=== PATIENT | male | born 1985 | race Hispanic/Latino ===

== ENCOUNTER 2019-05-26 04:08 | Emergency (ER) | payer OTHER | END 2019-05-26 05:04 | disposition home or self-care (01) | LOC: EDH 04:08 | DX: K64.0 First degree hemorrhoids (principal); K59.00 Constipation, unspecified; Z87.891 Personal history of nicotine dependence ==

== ENCOUNTER 2019-05-27 09:30 | Emergency (ER) | payer OTHER ==
[2019-05-27 10:22] LABS: BASOPHILS % (AUTO) 0.3 % (0.0-5.0); EOSINOPHILS % (AUTO) 0.2 % (0.0-8.0); HEMATOCRIT 46.1 % (42-54); LYMPHOCYTES % (AUTO) 15.8 % (21.0-51.0); MEAN CORPUSCULAR HEMOGLOBIN 32.1 pg (27.0-33.0); MEAN CORPUSCULAR HGB CONC 33.8 g/dL (32.0-36.0); MEAN CORPUSCULAR VOLUME 95.1 fL (79-99); MONOCYTES % (AUTO) 7.9 % (3.0-13.0); NEUTROPHILS % (AUTO) 75.8 % (40.0-77.0); NUCLEATED RED BLOOD CELLS 0.1 % (0.0-0.19); PLATELET COUNT (AUTO) 219 K/uL (130-400); RED BLOOD CELL COUNT(AUTO) 4.85 MIL/uL (4.50-6.20); RED CELL DISTRIBUTION WIDTH 13.9 % (11.0-15.5); WHITE BLOOD COUNT (AUTO) 5.8 K/uL (4.8-10.8)
[2019-05-27] MEDS ORDERED: HYDROCORTISONE 25 MG SUPPOSITORY PR ONE (10:27)
[2019-05-27 10:29] LABS: POTASSIUM 3.7 mmol/L (3.5-5.1)
[2019-05-27 10:33] LABS: ALBUMIN 4.4 g/dL (3.5-5.0); TOTAL PROTEIN, SERUM 7.7 g/dL (6.0-8.3)
[2019-05-27 10:34] LABS: APPEARANCE,URINE Clear (CLEAR); BILIRUBIN,URINE Negative (NEGATIVE); COLOR,URINE Yellow (YELLOW); GLUCOSE, URINE (UA) Negative (NEGATIVE); KETONES,URINE Negative (NEGATIVE); LEUKOCYTE ESTERASE ,URINE Negative (NEGATIVE); NITRATE,URINE Negative (NEGATIVE); OCCULT BLOOD,URINE Negative (NEGATIVE); PH,URINE 7.5 (5.0-8.0); PROTEIN,URINE Negative (NEGATIVE)
[2019-05-27 10:42] LABS: AMPHET/METH SCREEN,URINE NEGATIVE (NEGATIVE); BARBITURATE SCREEN, URINE NEGATIVE (NEGATIVE); BENZODIAZEPINES SCREEN,URINE NEGATIVE (NEGATIVE); CANNABINOID SCREEN,URINE POSITIVE (NEGATIVE); COCAINE SCREEN,URINE NEGATIVE (NEGATIVE); OPIATE SCREEN,URINE NEGATIVE (NEGATIVE); PHENCYCLIDINE SCREEN,URINE NEGATIVE (NEGATIVE)
== END 2019-05-27 11:00 | disposition home or self-care (01) ==
LOC: EDH 09:30
DX: K64.4 Residual hemorrhoidal skin tags (principal); Z72.0 Tobacco use
CPT/HCPCS: 36415; 80053; 80305; 81003; 82150; 83690; 85025

== ENCOUNTER 2020-04-01 07:13 | Observation (INO) | payer SELFPAY ==
[~2020-04-01] VITALS: Ht 167.6 cm; Wt 61.9 kg
[2020-04-01] MEDS ORDERED: ONDANSETRON HCL 4 MG/2 ML VIAL ONE (07:14)
[2020-04-01] MEDS ORDERED: LORAZEPAM 2 MG/ML 1 ML VIAL ONE (07:44)
[2020-04-01] MEDS ORDERED: MAG HYDROX/AL HYDROX/SIMETH ES 30 ML SUSP UDCUP ONE (07:44)
[2020-04-01] MEDS ORDERED: LIDOCAINE HCL 2% VISCOUS 15 ML UDCUP ONE (07:44)
[2020-04-01] MEDS ORDERED: SODIUM CHLORIDE 0.9% 1000ML 1,000 ML IV ONE ×3 (07:45→16:35)
[2020-04-01 07:49] LABS: BASOPHILS % (AUTO) 0.1 % (0.0-5.0); HEMATOCRIT 43.7 % (42-54); MEAN CORPUSCULAR HEMOGLOBIN 30.5 pg (27.0-33.0); MEAN CORPUSCULAR HGB CONC 35.2 g/dL (32.0-36.0); MEAN CORPUSCULAR VOLUME 86.5 fL (79-99); MONOCYTES % (AUTO) 8.9 % (3.0-13.0); NEUTROPHILS % (AUTO) 87.3 % (40.0-77.0); PLATELET COUNT (AUTO) 274 K/uL (130-400); RED BLOOD CELL COUNT(AUTO) 5.05 MIL/uL (4.50-6.20); RED CELL DISTRIBUTION WIDTH 12.1 % (11.0-15.5); WHITE BLOOD COUNT (AUTO) 24.3 K/uL (4.8-10.8)
[2020-04-01 08:05] LABS: BILIRUBIN,TOTAL 1.1 mg/dL (0.2-1.0); CREATININE 2.2 mg/dL (0.5-1.5); POTASSIUM 3.4 mmol/L (3.5-5.1); TOTAL PROTEIN, SERUM 8.1 g/dL (6.0-8.3)
[2020-04-01] MEDS ORDERED: ONDANSETRON HCL 4 MG/2 ML VIAL IV PRN (09:45)
[2020-04-01] MEDS ORDERED: PHARMACY COMMUNICATION MISC PRN (09:45)
[2020-04-01] MEDS ORDERED: LORAZEPAM 2 MG/ML 1 ML VIAL IVP PRN (09:45)
[2020-04-01] MEDS ORDERED: HYDRALAZINE HCL 20 MG/ML VIAL IV PRN (09:45)
[2020-04-01] MEDS: THIAMINE HCL 100 MG/ML 2ML VIAL IV SCH (09:45)
[2020-04-01] MEDS ORDERED: ACETAMINOPHEN 325 MG TAB PO PRN ×2 (09:45)
[2020-04-01] MEDS: FOLIC ACID 5 MG/ML 10 ML VIAL IV SCH (09:45)
[2020-04-01] MEDS ORDERED: THIAMINE HCL 100 MG/ML 2ML VIAL ONE (10:32)
[2020-04-01 10:33] LABS: AMPHET/METH SCREEN,URINE NEGATIVE (NEGATIVE); BARBITURATE SCREEN, URINE NEGATIVE (NEGATIVE); BENZODIAZEPINES SCREEN,URINE NEGATIVE (NEGATIVE); CANNABINOID SCREEN,URINE POSITIVE (NEGATIVE); COCAINE SCREEN,URINE NEGATIVE (NEGATIVE); OPIATE SCREEN,URINE NEGATIVE (NEGATIVE); PHENCYCLIDINE SCREEN,URINE NEGATIVE (NEGATIVE)
[2020-04-01] MEDS ORDERED: FOLIC ACID 5 MG/ML 10 ML VIAL ONE (10:33)
[2020-04-01] MEDS: SODIUM CHLORIDE 0.9% 1000ML 1,000 ML IV SCH ×2 (14:31→19:31)
[2020-04-01 16:50] VITALS: BP 116/73
[2020-04-01 21:18] VITALS: BP 112/73
[2020-04-01 23:49] VITALS: BP 117/65
[2020-04-02] MEDS: SODIUM CHLORIDE 0.9% 1000ML 1,000 ML IV SCH ×3 (00:30→08:37)
--- NOTE | 2020-04-02 03:52 | NUR ---
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 ORDERS PLACED IN [facility]
[2020-04-02 05:01] LABS: BASOPHILS % (AUTO) 0.2 % (0.0-5.0); EOSINOPHILS % (AUTO) 0.1 % (0.0-8.0); HEMATOCRIT 37.2 % (42-54); LYMPHOCYTES % (AUTO) 10.4 % (21.0-51.0); MEAN CORPUSCULAR HEMOGLOBIN 31.2 pg (27.0-33.0); MEAN CORPUSCULAR HGB CONC 33.6 g/dL (32.0-36.0); MEAN CORPUSCULAR VOLUME 92.8 fL (79-99); MONOCYTES % (AUTO) 8.6 % (3.0-13.0); NEUTROPHILS % (AUTO) 80.4 % (40.0-77.0); PLATELET COUNT (AUTO) 180 K/uL (130-400); RED BLOOD CELL COUNT(AUTO) 4.01 MIL/uL (4.50-6.20); RED CELL DISTRIBUTION WIDTH 11.9 % (11.0-15.5); WHITE BLOOD COUNT (AUTO) 15.5 K/uL (4.8-10.8)
[2020-04-02 05:18] LABS: CREATININE 0.9 mg/dL (0.5-1.5)
[2020-04-02 05:44] VITALS: BP 114/79
[2020-04-02] MEDS ORDERED: LIDOCAINE HCL-MPF 1% 2ML VIAL IV PRN (05:45)
[2020-04-02] MEDS ORDERED: POTASSIUM CHLORIDE 10MEQ/100ML 100 ML IV PRN (05:45)
[2020-04-02] MEDS ORDERED: POTASSIUM CHLORIDE 10% ELIXIR 20 MEQ/15 ML UDCUP PO PRN (05:45)
[2020-04-02] MEDS ORDERED: POTASSIUM CHLORIDE 20 MEQ ERTAB PO PRN (05:45)
--- NOTE | 2020-04-02 05:46 | NUR ---
MARRY LLOYD REPORTED POTASSIUM CRITICAL VALUE OF A 3.0 TO QAMAR POOLE. ORDER TO PLACE PT ON A HALF POTASSIUM PROTOCOL.
[2020-04-02] MEDS ORDERED: POTASSIUM CHLORIDE 10MEQ/100ML 100 ML IV ONE (06:20)
[2020-04-02] MEDS ORDERED: LIDOCAINE HCL-MPF 1% 2ML VIAL ONE (06:21)
[2020-04-02 07:35] VITALS: BP 117/66
[2020-04-02] MEDS ORDERED: POTASSIUM CHLORIDE 20 MEQ ERTAB PO SCH ×2 (08:00→12:00)
[2020-04-02] MEDS: THIAMINE HCL 100 MG/ML 2ML VIAL IV SCH (08:36)
[2020-04-02] MEDS: FOLIC ACID 5 MG/ML 10 ML VIAL IV SCH (08:52)
[2020-04-02 10:42] VITALS: BP 122/77
== END 2020-04-02 14:30 | disposition home or self-care (01) ==
LOC: EDH 07:13 → EDHIP 07:14 → 3AH 16:27
PROVIDERS: ADMIT Internal Medicine; ATTEND Internal Medicine
DX: R11.2 Nausea with vomiting, unspecified (principal); E86.1 Hypovolemia; E87.6 Hypokalemia; F10.20 Alcohol dependence, uncomplicated; N17.9 Acute kidney failure, unspecified; F12.90 Cannabis use, unspecified, uncomplicated; R10.10 Upper abdominal pain, unspecified; Y90.9 Presence of alcohol in blood, level not specified
CPT/HCPCS: 36415 ×2; 74176; 80048; 80053; 80305; 83690; 85025 ×2; 96365; 96366; 96375 ×2; 99284; G0378 ×18; G0480; J2060; J2405 ×2; J3411 ×2; J3490 ×3; J7030 ×3

== ENCOUNTER 2023-06-24 16:08 | Emergency (ER) | payer OTHER ==
[~2023-06-24] VITALS: Ht 167.6 cm; Wt 59.0 kg
[2023-06-24 16:47] LABS: SARS-CoV-2, RNA, NAAT NEGATIVE SARS CoV-2 (NEGATIVE)
[2023-06-24 16:51] LABS: INFLUENZA TYPE A Negative For Type A (NEGATIVE); INFLUENZA TYPE B Negative For Type B (NEGATIVE)
[2023-06-24 16:57] LABS: APPEARANCE,URINE CLEAR (CLEAR); BILIRUBIN,URINE NEGATIVE (NEGATIVE); COLOR,URINE YELLOW (YELLOW); GLUCOSE, URINE (UA) NEGATIVE (NEGATIVE); KETONES,URINE 5 mg/dL (NEGATIVE); LEUKOCYTE ESTERASE ,URINE NEGATIVE Leu/uL (NEGATIVE); NITRATE,URINE NEGATIVE (NEGATIVE); OCCULT BLOOD,URINE NEGATIVE (NEGATIVE); PH,URINE 5.5 (5.0-8.0); PROTEIN,URINE 20 mg/dL (NEGATIVE)
[2023-06-24 17:01] LABS: ADD UA MICROSCOPIC YES
[2023-06-24 17:05] LABS: BACTERIA,URINE RARE /HPF (None Seen); MUCUS,URINE RARE LPF (None Seen); RBC,URINE 0-1 /HPF (0-1); SQUAMOUS EPITHELIAL CELL,UR RARE /HPF (0-2); WBC,URINE 0-1 /HPF (0-1)
[2023-06-24 17:28] VITALS: BP 149/84; PULSE 111; RESP 20; O2SAT 99
[2023-06-24 17:55] LABS: BASOPHILS # (AUTO) 0.03 K/uL (0.00-0.20); BASOPHILS % (AUTO) 0.4 % (0.0-5.0); EOSINOPHILS # (AUTO) 0.02 K/uL (0.00-0.70); EOSINOPHILS % (AUTO) 0.3 % (0.0-8.0); HEMATOCRIT 41.8 % (42-54); IMMATURE GRANULOCYTE ABSOLUTE 0.02 K/uL (0-1); LYMPHOCYTES # (AUTO) 2.1 K/uL (1.0-4.8); LYMPHOCYTES % (AUTO) 28.5 % (21.0-51.0); MEAN CORPUSCULAR HEMOGLOBIN 29.7 pg (27.0-33.0); MEAN CORPUSCULAR HGB CONC 34.2 g/dL (32.0-36.0); MEAN CORPUSCULAR VOLUME 86.9 fL (79-99); MONOCYTES # (AUTO) 0.6 K/uL (0.1-1.0); MONOCYTES % (AUTO) 7.5 % (3.0-13.0); NEUTROPHILS # (AUTO) 4.7 K/uL (1.8-7.7); PLATELET COUNT (AUTO) 308 K/uL (130-400); RED BLOOD CELL COUNT(AUTO) 4.81 MIL/uL (4.50-6.20); RED CELL DISTRIBUTION WIDTH 12.7 % (11.0-15.5); WHITE BLOOD COUNT (AUTO) 7.4 K/uL (4.8-10.8)
[2023-06-24 18:04] LABS: CREATININE 0.9 mg/dL (0.5-1.5); POTASSIUM 3.7 mmol/L (3.5-5.1)
[2023-06-24 18:11] LABS: TOTAL PROTEIN, SERUM 7.8 g/dL (6.0-8.3)
[2023-06-24] MEDS ORDERED: ONDANSETRON 4MG INJ IVP ONE (18:30)
[2023-06-24] MEDS ORDERED: 0.9%NACL 1000ML 1,000 ML IV ONE (18:30)
[2023-06-24] MEDS ORDERED: KETOROLAC 60 MG VIAL (30MG/ML) IM ONE ×2 (18:56→19:00)
== END 2023-06-24 19:03 | disposition home or self-care (01) ==
LOC: EDH 16:08
DX: M54.50 Low back pain, unspecified (principal); I10 Essential (primary) hypertension; Z20.822 Contact with and (suspected) exposure to COVID-19; Z87.442 Personal history of urinary calculi
CPT/HCPCS: 99283; 87635; 82550; 80053; 85025; 87804 ×2; 81001; 36415; 96372; C9803; J1885

== ENCOUNTER 2023-08-23 22:40 | Emergency (ER) | payer OTHER ==
[~2023-08-23] VITALS: Ht 172.7 cm; Wt 68.0 kg
[2023-08-24] MEDS ORDERED: MORPHINE 4 MG SYG IM ONE
[2023-08-24 00:29] VITALS: BP 124/68; PULSE 68; RESP 18; O2SAT 98
[2023-08-24] MEDS ORDERED: OCTYL 2-CYANOACRYLATE 1 EACH TP SCH (01:30)
[2023-08-24] MEDS ORDERED: IBUP-2070 PO (01:52)
[2023-08-24] MEDS ORDERED: TETANUS/DIPHTHERIA TOXOID [ADULT] 0.5 ML VIAL IM ONE (02:00)
== END 2023-08-24 02:04 | disposition home or self-care (01) ==
LOC: EDH 22:40
DX: S42.001A Fracture of unspecified part of right clavicle, initial encounter for closed fracture (principal); S41.011A Laceration without foreign body of right shoulder, initial encounter; S01.81XA Laceration without foreign body of other part of head, initial encounter; S01.112A Laceration without foreign body of left eyelid and periocular area, initial encounter; V19.88XA Pedal cyclist (driver) (passenger) injured in other specified transport accidents, initial encounter; Y93.89 Activity, other specified; Y92.89 Other specified places as the place of occurrence of the external cause; Y99.8 Other external cause status
CPT/HCPCS: 99284; 73030; 90714; 90471; 12011; 96372; J2270